=== PATIENT | male | born 1970 | race Caucasian/White ===

== ENCOUNTER → 2020-04-19 | Outpatient (CLI) | payer BC | LOC: LABNPT 05:32 | PROVIDERS: ATTEND Nurse Practitioner | DX: Z20.828 Contact with and (suspected) exposure to other viral communicable diseases (principal); Z53.8 Procedure and treatment not carried out for other reasons ==

== ENCOUNTER 2020-11-16 11:13 | Outpatient (CLI) | payer BC | END 2020-11-16 12:00 | disposition home or self-care (01) | LOC: SLEEP 11:13 | PROVIDERS: ATTEND Nurse Practitioner Family | DX: G47.33 Obstructive sleep apnea (adult) (pediatric) (principal); G47.36 Sleep related hypoventilation in conditions classified elsewhere; G47.50 Parasomnia, unspecified; G47.10 Hypersomnia, unspecified | CPT/HCPCS: G0399 ==

== ENCOUNTER → 2020-12-15 | Outpatient (CLI) | payer BC ==
--- NOTE | 2020-12-15 17:41 | Diagnostic Imaging Report ---
PROCEDURE: CT abdomen and pelvis without contrast. TECHNIQUE: Multiple contiguous axial images were obtained through the abdomen and pelvis without the use of intravenous contrast. Auto Exposure Controls were utilized during the CT exam to meet ALARA standards for radiation dose reduction. INDICATION: Microhematuria. No prior studies are available for comparison. The lung bases are clear. There is a nodular contour to the liver suggestive of cirrhosis. No discrete liver mass is identified. Spleen is mildly enlarged at 14.2 cm. Gallbladder is unremarkable. Pancreas is unremarkable. No adrenal mass is detected. Right kidney does contain a 5 mm nonobstructing calculus. Left kidney is unremarkable. There is no hydronephrosis. No bladder calculi are seen. Aorta is nonaneurysmal. There are some varices in the left periaortic region, perhaps representing splenorenal shunt. No ascites is present. Bowel loops are normal in caliber. Prostate is normal in size. IMPRESSION: 1. Nonobstructing right-sided nephrolithiasis. No ureteral calculi or hydronephrosis is detected. 2. Nodular contour to the liver as well as mild splenomegaly and probable abdominal varices. Features are consistent with cirrhosis and potentially portal hypertension. No ascites is present. Dictated by: Dictated on workstation # [id number]
== END ==
LOC: RAD FS 10:57
PROVIDERS: ATTEND Urology
DX: N20.0 Calculus of kidney (principal); K76.89 Other specified diseases of liver; R16.1 Splenomegaly, not elsewhere classified
CPT/HCPCS: 74176

== ENCOUNTER → 2020-12-30 | Outpatient (CLI) | payer BC ==
[~2020-12-30] MED LIST: CATHETER FLUSH 10 ML SYR IV PRN; HOLD METFORMIN - RECEIVED CONTRAST 20 ML VIAL IV SCH; IOHEXOL 350 MG/ML 100 ML (OMNIPAQUE 350) VIAL IV ONE; NS 100 ML (IVPB) BAG IV ONE
--- NOTE | 2020-12-30 09:07 | Diagnostic Imaging Report ---
EXAMINATION: CT chest with intravenous contrast. TECHNIQUE: Multiple contiguous axial images were obtained through the chest after the uneventful administration of intravenous contrast. All CT scans use one or more of the following dose optimizing techniques: automated exposure control, MA and/or KvP adjustment based on patient size and exam type or iterative reconstruction. HISTORY: ABN FINDINGS ON IMAGING OF LUNG COMPARISON: None available. FINDINGS: Thyroid: The thyroid is normal. Mediastinum: Heart size is normal without significant pericardial effusion. Calcifications of the aorta and coronary vessels. Thoracic aorta is normal in caliber. No suspicious lymphadenopathy. Lungs and airways: The lungs are clear without consolidation, pleural effusion, or pneumothorax. No suspicious pulmonary lesion. The airways are normal. Upper abdomen: Nodular morphology of the liver. The spleen is enlarged. No obstructing right renal calculus. Musculoskeletal: Degenerative changes of the spine without suspicious osseous lesion or compression fracture. IMPRESSION: 1. No acute abnormality in the chest. Dictated by: Dictated on workstation # [id number]
== END ==
LOC: RAD FS 08:05
PROVIDERS: ATTEND Nurse Practitioner Family
DX: R91.8 Other nonspecific abnormal finding of lung field (principal)
CPT/HCPCS: 71260

== ENCOUNTER 2021-03-15 17:52 | Emergency (ER) | payer SELFPAY ==
[~2021-03-15] VITALS: Ht 190 cm; Wt 183.0 kg
--- NOTE | 2021-03-15 18:16 | ED General ---
General Chief Complaint: Skin/Wound Problems Stated Complaint: RT LEG ULCER INFECTION Source of Information: Patient, Spouse History of Present Illness Date Seen by Provider: Mar 15, 2021 Time Seen by Provider: 17:55 Initial Comments 50 yo male presenting with his spouse due to increasing redness, pain and drainage from 2 wounds on his right calf and lower leg. He had been going through the wound care clinic at [facility] but recently lost his insurance. When that happened a few weeks ago he was unable to pay for any further visits because they were requesting $10,000 for each visit. He has not gone to the clinic to see be seen either. He has had no fever or chills. He has not been on an antibiotic for a few weeks now but the entire time he was seen wound care when he was off and on antibiotics every few weeks. He has been dealing with the swelling and leg ulcers for over a year. He has had worsening symptoms in the last 3 days and rather than go to the clinic he came here to the emergency department as he felt like he needed antibiotics. He is waiting on his disability application to be approved so that he can get insurance reinstated to be able to go back to a wound care center. Timing/Duration: 3-4 Days Severity: Moderate Modifying Factors: worse with Movement Associated Systoms: No Chest Pain, No Cough, No Diaphoresis, No Fever/Chills, No Headaches, No Loss of Appetite, No Malaise, No Nausea/Vomiting, No Rash, No Seizure, No Shortness of Air, No Syncope, No Weakness Allergies and Home Medications Allergies Coded Allergies: No Known Drug Allergies (Unverified , 03/15/21) Patient Home Medication List Home Medication List Reviewed: Yes Doxycycline Hyclate (Doxycycline Hyclate) 100 Mg Tablet, 100 MG PO BID Prescribed by: ANDREIA FAGAN on 03/15/211926 Review of Systems Review of Systems Constitutional: No chills, No fever EENTM: no symptoms reported Respiratory: no symptoms reported Cardiovascular: no symptoms reported Gastrointestinal: no symptoms reported Genitourinary: no symptoms reported Musculoskeletal: see HPI Skin: see HPI Psychiatric/Neurological: No Symptoms Reported Past Ovjnybs-Lfidgn-Coogfo Hx Patient Social History Tobacco Use?: Yes Tobacco type used: Cigarettes Smoking Status: Current Everyday Smoker Use of E-Cig and/or Vaping dev: No Substance use?: No Alcohol Use?: No Pt feels they are or have been: No Immunizations Up To Date First/Initial COVID19 Vaccinat: JULY 2020 Second COVID19 Vaccination Bowen: AUGUST 2020 COVID19 Vaccine Opening Machine Cleaner: BOSami Physical Exam Vital Signs Vital Signs - First Documented 03/15/21 18:08 Temp 36.8 Pulse 105 Resp 18 B/P (MAP) 154/90 (111) Pulse Ox 99 O2 Delivery Room Air Capillary Refill : Height, Weight, BMI Height: '" Weight: lbs. oz. kg; BMI Method: General Appearance: No Apparent Distress, Obese (morbid obesity) Respiratory: Chest Non Tender, Lungs Clear, Normal Breath Sounds Cardiovascular: Regular Rate, Rhythm Gastrointestinal: Normal Bowel Sounds, No Pulsatile Mass, Non Tender, Soft Extremity: Calf Tenderness (around wound on calf and around wound over tibia), Pedal Edema, Slow Capillary Refill, Swelling Neurologic/Psychiatric: Alert, Oriented x3 Skin: Warm/Dry, Erythema (mild redness to RLE with slight increase in warmth. ), Other (some purulent appearing drainage on packing material in wounds. no active drainage from either wound. no streaking up the leg. no fluctuance) Focused Exam Lactate Level 03/15/21 18:20: Lactic Acid Level 1.02 Lactic Acid Level Laboratory Tests Test 03/15/21 18:20 Lactic Acid Level 1.02 MMOL/L (0.50-2.00) Progress/Results/Core Measures Suspected Sepsis SIRS Temperature: Pulse: Respiratory Rate: Laboratory Tests 03/15/21 18:20: White Blood Count 7.0 Blood Pressure / Mean: 03/15/21 18:20: Lactic Acid Level 1.02 Laboratory Tests 03/15/21 18:20: Creatinine 0.67, Platelet Count 137, Total Bilirubin 1.0 Results/Orders Lab Results Laboratory Tests Test 03/15/21 18:20 Range/Units White Blood Count 7.0 4.3-11.0 10^3/uL Red Blood Count 2.89 L 4.30-5.52 10^6/uL Hemoglobin 10.6 L 13.3-17.7 g/dL Hematocrit 31 L 40-54 % Mean Corpuscular Volume 108 H 80-99 fL Mean Corpuscular Hemoglobin 37 H 25-34 pg Mean Corpuscular Hemoglobin Concent 34 32-36 g/dL Red Cell Distribution Width 13.8 10.0-14.5 % Platelet Count 137 130-400 10^3/uL Mean Platelet Volume 10.0 9.0-12.2 fL Immature Granulocyte % (Auto) 0 % Neutrophils (%) (Auto) 52 42-75 % Lymphocytes (%) (Auto) 32 12-44 % Monocytes (%) (Auto) 10 0-12 % Eosinophils (%) (Auto) 5 0-10 % Basophils (%) (Auto) 1 0-10 % Neutrophils # (Auto) 3.7 1.8-7.8 X 10^3 Lymphocytes # (Auto) 2.2 1.0-4.0 X 10^3 Monocytes # (Auto) 0.7 0.0-1.0 X 10^3 Eosinophils # (Auto) 0.3 0.0-0.3 10^3/uL Basophils # (Auto) 0.1 0.0-0.1 10^3/uL Immature Granulocyte # (Auto) 0.0 0.0-0.1 10^3/uL Neutrophils % (Manual) 54 % Lymphocytes % (Manual) 14 % Monocytes % (Manual) 9 % Eosinophils % (Manual) 4 % Basophils % (Manual) 1 % Atypical Lymphocytes 18 % Macrocytosis 2+ Sodium Level 138 135-145 MMOL/L Potassium Level 4.0 3.6-5.0 MMOL/L Chloride Level 103 98-107 MMOL/L Carbon Dioxide Level 27 21-32 MMOL/L Anion Gap 8 5-14 MMOL/L Blood Urea Nitrogen 12 7-18 MG/DL Creatinine 0.67 0.60-1.30 MG/DL Estimat Glomerular Filtration Rate 127 BUN/Creatinine Ratio 18 Glucose Level 90 70-105 MG/DL Lactic Acid Level 1.02 0.50-2.00 MMOL/L Calcium Level 8.6 8.5-10.1 MG/DL Corrected Calcium 9.2 8.5-10.1 MG/DL Total Bilirubin 1.0 0.1-1.0 MG/DL Aspartate Amino Transf (AST/SGOT) 56 H 5-34 U/L Alanine Aminotransferase (ALT/SGPT) 29 0-55 U/L Alkaline Phosphatase 170 H 40-136 U/L C-Reactive Protein 4.75 H <0.50 MG/DL Total Protein 8.0 6.4-8.2 GM/DL Albumin 3.2 3.2-4.5 GM/DL My Orders Orders - ANDREIA FAGAN MD Cbc With Automated Diff (03/15/21 18:09) Comprehensive Metabolic Panel (03/15/21 18:09) Blood Culture (03/15/21 18:09) Ed Iv/Invasive Line Start (03/15/21 18:09) Crp Fs (03/15/21 18:09) Lactic Acid Analyzer (03/15/21 18:09) Manual Differential (03/15/21 18:20) Ceftriaxone (Rocephin) (03/15/21 19:08) Ceftriaxone (Rocephin) (03/15/21 19:21) Water (Sterile) For Injection (Sterile W (03/15/21 19:21) Vital Signs/I&O 03/15/21 03/15/21 18:08 19:28 Temp 36.8 36.8 Pulse 105 105 Resp 18 18 B/P (MAP) 154/90 (111) 154/90 Pulse Ox 99 99 O2 Delivery Room Air Room Air Capillary Refill : Progress Note #1: Progress Note check basic labs with cultures and lactic acid. Will likely give antibiotic but will try to review med history to see if he has been on meds recently. Progress Note #2: Progress Note Labs do not show elevated WBC or Lactic acid. He has mild elevation of LFTs. Will give Rocephin 1 gm IV and follow that up with Doxycycline script since he has not had that since October and just finished a course of Amoxicillin 2 weeks ago. Counseled on follow up and return precautions and given information for [facility] clinic as they may be able to see him and help without the cost associated with [facility]. Departure Impression Primary Impression: Chronic ulcer of calf Additional Impressions: Cellulitis of right leg Chronic ulcer of right leg Qualified Codes: L97.912 - Non-pressure chronic ulcer of unspecified part of right lower leg with fat layer exposed Disposition: 01 HOME, SELF-CARE Condition: Stable Departure-Patient Inst. Decision time for Depature: 19:23 Referrals: SEBAS YOUNGBLOOD (PCP) Primary Care Physician [facility] Patient Instructions: Cellulitis (Skin Infection), Adult ED Add. Discharge Instructions: Take full course of antibiotics. Continue to use dressings you have on the wounds to help with healing. Consider working with [facility] clinic to help with treatment and assistance on wound care. They have federal funding to help with assistance for people without insurance or that are under-insured. Call [phone] to request an appointment. All discharge instructions reviewed with patient and/or family. Voiced understanding. Scripts Doxycycline Hyclate (Doxycycline Hyclate) 100 Mg Tablet 100 MG PO BID for cellulitis for 10 Days, #20 TAB 0 Refills Prov: ANDREIA FAGAN MD 03/15/21 ANDREIA FAGAN MD Mar 15, 2021 18:16
[2021-03-15 18:48] LABS: BASOPHILS # (AUTO) 0.1 10^3/uL (0.0-0.1); BASOPHILS % (AUTO) 1 % (0-10); EOSINOPHILS # (AUTO) 0.3 10^3/uL (0.0-0.3); EOSINOPHILS % (AUTO) 5 % (0-10); HEMATOCRIT 31 % (40-54); HEMOGLOBIN 10.6 g/dL (13.3-17.7); LYMPHOCYTES # (AUTO) 2.2 X 10^3 (1.0-4.0); LYMPHOCYTES % (AUTO) 32 % (12-44); MEAN CORPUSCULAR HEMOGLOBIN 37 pg (25-34); MEAN CORPUSCULAR HGB CONC 34 g/dL (32-36); MEAN CORPUSCULAR VOLUME 108 fL (80-99); MONOCYTES # (AUTO) 0.7 X 10^3 (0.0-1.0); MONOCYTES % (AUTO) 10 % (0-12); NEUTROPHILS # (AUTO) 3.7 X 10^3 (1.8-7.8); NEUTROPHILS % (AUTO) 52 % (42-75); PLATELET COUNT 137 10^3/uL (130-400)
[2021-03-15 18:49] LABS: ATYPICAL LYMPHOCYTES 18 %; BASOPHILS % (MANUAL) 1 %; EOSINOPHILS % (MANUAL) 4 %; LYMPHOCYTES % (MANUAL) 14 %; MONOCYTES % (MANUAL) 9 %; NEUTROPHILS % (MANUAL) 54 %
[2021-03-15 18:51] LABS: ALBUMIN 3.2 GM/DL (3.2-4.5); CALCIUM 8.6 MG/DL (8.5-10.1); CREATININE SERUM 0.67 MG/DL (0.60-1.30)
[2021-03-15] MEDS ORDERED: cefTRIAXone 1,000 MG in WATER (STERILE) FOR INJECTION 10 ML IV STA (19:08)
[2021-03-15] MEDS ORDERED: cefTRIAXone 1,000 MG VIAL ONE (19:21)
[2021-03-15] MEDS ORDERED: WATER (STERILE) FOR INJECTION 10 ML ONE (19:21)
[2021-03-15] MEDS ORDERED: DOXY100T2 PO (19:27)
[2021-03-15 19:28] VITALS: BP 154/90
== END 2021-03-15 19:32 | disposition home or self-care (01) ==
LOC: EDUNIT# 17:52 → ER FS 17:54
DX: L97.219 Non-pressure chronic ulcer of right calf with unspecified severity (principal); L97.919 Non-pressure chronic ulcer of unspecified part of right lower leg with unspecified severity; L03.115 Cellulitis of right lower limb; E66.01 Morbid (severe) obesity due to excess calories; F17.210 Nicotine dependence, cigarettes, uncomplicated
CPT/HCPCS: 36415; 80053; 83605; 85007; 85027; 86141; 87040

== ENCOUNTER 2021-04-08 16:01 | Emergency (ER) | payer SELFPAY ==
[~2021-04-08 16:01] MED LIST changes: -CATHETER FLUSH 10 ML SYR IV PRN; +DOXY100T2 PO; -HOLD METFORMIN - RECEIVED CONTRAST 20 ML VIAL IV SCH; -IOHEXOL 350 MG/ML 100 ML (OMNIPAQUE 350) VIAL IV ONE; -NS 100 ML (IVPB) BAG IV ONE
--- NOTE | 2021-04-08 16:16 | ED Integumentary General ---
General Stated Complaint: LT LEG WOUND CHECK History of Present Illness Date Seen by Provider: Apr 08, 2021 Time Seen by Provider: 16:16 Initial Comments 50-year-old male presents with left inner thigh cellulitis. Patient reports that he gets recurrent cellulitis. That this started about 3 days ago and has been spreading and getting worse. Patient presents because he did not have a primary care provider. Patient was seen here about a month ago with similar symptoms but on the right leg. No reports of fevers chills nausea vomiting Allergies and Home Medications Allergies Coded Allergies: No Known Drug Allergies (Unverified , 03/15/21) Patient Home Medication List Home Medication List Reviewed: Yes Doxycycline Hyclate (Doxycycline Hyclate) 100 Mg Tablet, 100 MG PO BID Prescribed by: ANDREIA FAGAN on 03/15/211926 Doxycycline Hyclate (Doxycycline Hyclate) 100 Mg Tablet, 100 MG PO BID Prescribed by: ROBBY ABAD on 04/08/21 163 Review of Systems Review of Systems Constitutional: No chills, No fever Respiratory: No short of breath, No wheezing Cardiovascular: No chest pain, No palpitations Gastrointestinal: No abdominal pain, No nausea, No vomiting Musculoskeletal: see HPI Skin: see HPI Psychiatric/Neurological: No Symptoms Reported Endocrine: No Symptoms Reported Hematologic/Lymphatic: No Symptoms Reported Past Wyznpdi-Fsqytw-Nvuofv Hx Immunizations Up To Date First/Initial COVID19 Vaccinat: JULY 2020 Second COVID19 Vaccination Bowen: AUGUST 2020 Physical Exam Vital Signs Vital Signs - First Documented 04/08/21 16:18 Temp 36.7 Pulse 105 Resp 18 B/P (MAP) 135/56 (82) Pulse Ox 96 O2 Delivery Room Air Capillary Refill : General Appearance: WD/WN, no apparent distress, obese Neck: full range of motion, supple Cardiovascular: normal peripheral pulses, regular rate, rhythm Respiratory: lungs clear, normal breath sounds, no respiratory distress Gastrointestinal: non tender, soft Extremities: normal range of motion Neurologic/Psychiatric: alert, normal mood/affect, oriented x 3 Skin: other (Mild cellulitis of the left inner thigh with some mild induration but no abscess) Skin Problem Location: lower extremities Skin Problem Character: erythema, warm Progress/Results/Core Measures Results/Orders Vital Signs/I&O 04/08/21 04/08/21 16:18 16:38 Temp 36.7 36.7 Pulse 105 105 Resp 18 18 B/P (MAP) 135/56 (82) 135/56 Pulse Ox 96 96 O2 Delivery Room Air Room Air Departure Impression Primary Impression: Cellulitis of left thigh Disposition: HOME, SELF-CARE Condition: Stable Departure-Patient Inst. Referrals: SEBAS YOUNGBLOOD (PCP/Family) Primary Care Physician Patient Instructions: Cellulitis (Skin Infection), Adult ED Add. Discharge Instructions: Please follow-up with critical access hospital to establish care and further outpatient manage Scripts Doxycycline Hyclate (Doxycycline Hyclate) 100 Mg Tablet 100 MG PO BID, #20 TAB 0 Refills Prov: ROBBY ABAD DO 04/08/21 ROBBY ABAD DO Apr 08, 2021 16:16
[2021-04-08] MEDS ORDERED: DOXY100T2 PO ×2 (16:23→16:37)
[2021-04-08 16:38] VITALS: BP 135/56
== END 2021-04-08 16:37 | disposition home or self-care (01) ==
LOC: EDUNIT# 16:01 → ER FS 16:03
DX: L03.116 Cellulitis of left lower limb (principal)
CPT/HCPCS: 99281

== ENCOUNTER 2022-02-20 22:18 | Emergency (ER) | payer MEDICAID, OTHER ==
[~2022-02-20] VITALS: Ht 190.5 cm; Wt 184.1 kg
[2022-02-20] MEDS ORDERED: DOXYCYCLINE 100 MG (VIBRAMYCIN) TABLET PO STA (22:44)
[2022-02-20] MEDS ORDERED: CEPHALEXIN 250 MG (KEFLEX) CAP PO STA (22:44)
[2022-02-20] MEDS ORDERED: DOXY100T2 PO (22:50)
[2022-02-20] MEDS ORDERED: CEPH500T PO (22:50)
--- NOTE | 2022-02-20 22:50 | ED Lower Extremity ---
General Chief Complaint: Lower Extremity Stated Complaint: POST SURGERY L LEG PAIN/SWELLING Source: patient Exam Limitations: no limitations History of Present Illness Date Seen by Provider: Feb 20, 2022 Time Seen by Provider: 22:23 Initial Comments 51-year-old male with past medical history of hypertension, hyperlipidemia, and chronic right-sided leg ulcerations coming in due to redness in the right lower extremity. He was not under general anesthesia, but was under an anxiolytic on 14 February where they went in and cleaned out the ulcerations on the right lower extremity. Redness started showing up yesterday that was spreading up his leg. No fevers that he knows of, does have some discomfort with it. Denies any new chest pain, shortness of breath, significant leg swelling with it. He is otherwise denying any other acute complaints. Has an appointment in 1 day with his regular doctor in the wound doctor. Allergies and Home Medications Allergies Coded Allergies: No Known Drug Allergies (Unverified , 03/15/21) Patient Home Medication List Home Medication List Reviewed: Yes Doxycycline Hyclate (Doxycycline Hyclate) 100 Mg Tablet, 100 MG PO BID Prescribed by: ANDREIA FAGAN on 03/15/211926 Doxycycline Hyclate (Doxycycline Hyclate) 100 Mg Tablet, 100 MG PO BID Prescribed by: ROBBY ABAD on 04/08/21 1637 Review of Systems Constitutional: No fever EENTM: No blurred vision Respiratory: No cough Cardiovascular: no symptoms reported Gastrointestinal: no symptoms reported Genitourinary: no symptoms reported Musculoskeletal: no symptoms reported Skin: see HPI Psychiatric/Neurological: No Symptoms Reported All Other Systems Reviewed Negative Unless Noted: Yes Past Yyravqy-Esuadr-Btkcop Hx Patient Social History Substance use?: No Immunizations Up To Date First/Initial COVID19 Vaccinat: JULY 2020 Second COVID19 Vaccination Bowen: AUGUST 2020 Past Medical History Surgery/Hospitalization HX: HX-MRSA wound infections Surgeries: Yes (wound debridement) Physical Exam Vital Signs Capillary Refill : Height, Weight, BMI Height: '" Weight: lbs. oz. kg; 50.00 BMI Method: General Appearance: WD/WN, no apparent distress HEENT: PERRL/EOMI, normal ENT inspection, pharynx normal Neck: non-tender, full range of motion, supple, normal inspection Cardiovascular: regular rate, rhythm, no edema, no murmur Respiratory: chest non-tender, lungs clear, normal breath sounds, no respiratory distress, no accessory muscle use Gastrointestinal: normal bowel sounds, non tender, soft; No distended, No guarding, No rebound Back: normal inspection Legs: right leg other (Redness starting at the wound spreading up his leg up the medial aspect of his thigh, is not circumferential, normal distal pulses, normal distal sensation, the ulcerations are to the medial aspect of his right mid calf and just above the ankle as well medially with no drainage coming out of that) Neurologic/Tendon: normal sensation, normal motor functions Neurologic/Psychiatric: no motor/sensory deficits, alert, normal mood/affect Skin: normal color, warm/dry Lymphatic: no adenopathy Progress/Results/Core Measures Results/Orders My Orders Orders - HILARIO MENSAH MD Doxycycline Hyclate Tablet (Vibramycin T (02/20/22 22:44) Cephalexin Capsule (Keflex Capsule) (02/20/22 22:44) Progress Progress Note : Progress Note 51-year-old male with above history coming in due to redness along the right leg. ABCs were intact and vitals were stable on presentation. Physical exam consistent with cellulitic changes to the right lower extremity coming from the wound. He will be given doxycycline as well as Keflex. He has follow-up with his physician in 1 day and they can do a wound check. Otherwise I believe he stable for discharge with outpatient follow-up. Departure Impression Primary Impression: Cellulitis of right lower extremity Disposition: 01 HOME, SELF-CARE Condition: Stable Departure-Patient Inst. Decision time for Depature: 23:00 Referrals: SEBAS YOUNGBLOOD (PCP/Family) Primary Care Physician Patient Instructions: Cellulitis (Skin Infection), Adult ED Add. Discharge Instructions: Your skin unfortunately has gotten infected. You will be on 2 different antibiotics for the next 10 days. Follow-up with your regular doctor for wound check. After being on the antibiotics for 48 hours roughly, it should no longer be spreading and hopefully getting better. If this is not the case call your doctor back or come back to the ER Scripts Cephalexin (Cephalexin) 500 Mg Tablet 500 MG PO QID for 10 Days, #40 TAB Prov: HILARIO MENSAH MD 02/20/22 Doxycycline Hyclate (Doxycycline Hyclate) 100 Mg Tablet 100 MG PO BID for 10 Days, #20 TAB 0 Refills Prov: HILARIO MENSAH MD 02/20/22 Work/School Note: Work Release Form Date Seen in the Emergency Department: Feb 20, 2022 Return to Work: Feb 22, 2022 Restrictions: No Restrictions HILARIO MENSAH MD Feb 20, 2022 22:50
[2022-02-20 22:59] VITALS: BP 122/91
== END 2022-02-20 22:59 | disposition home or self-care (01) ==
LOC: EDUNIT# 22:18 → ER FS 22:20
DX: L03.115 Cellulitis of right lower limb (principal)
CPT/HCPCS: 99283

== ENCOUNTER 2022-04-15 19:30 | Emergency (ER) | payer MEDICAID ==
[~2022-04-15] VITALS: Ht 190 cm; Wt 150.0 kg
[~2022-04-15 19:30] MED LIST changes: +CEPH500T PO
[2022-04-15 19:43] VITALS: BP 136/71
--- NOTE | 2022-04-15 19:47 | ED Upper Extremity ---
General Chief Complaint: Upper Extremity Stated Complaint: RIGHT HAND INJURY History of Present Illness Date Seen by Provider: Apr 15, 2022 Time Seen by Provider: 19:46 Initial Comments 51-year-old male is here with complaints of second finger, right thumb and thenar area of the hand pain which began yesterday. Patient is concerned he might have a fracture. Denies fall, injury, sensory loss. Patient is unsure how he injured his hand but has been having pain. Allergies and Home Medications Allergies Coded Allergies: No Known Drug Allergies (Unverified , 03/15/21) Patient Home Medication List Home Medication List Reviewed: Yes Cephalexin (Cephalexin) 500 Mg Tablet, 500 MG PO QID Prescribed by: HILARIO MENSAH on 02/20/222249 Doxycycline Hyclate (Doxycycline Hyclate) 100 Mg Tablet, 100 MG PO BID Prescribed by: ANDREIA FAGAN on 03/15/211926 Doxycycline Hyclate (Doxycycline Hyclate) 100 Mg Tablet, 100 MG PO BID Prescribed by: ROBBY ABAD on 04/08/21 163 Doxycycline Hyclate (Doxycycline Hyclate) 100 Mg Tablet, 100 MG PO BID Prescribed by: HILARIO MENSAH on 02/20/222249 Review of Systems Constitutional: no symptoms reported EENTM: no symptoms reported Respiratory: no symptoms reported Cardiovascular: no symptoms reported Gastrointestinal: no symptoms reported Genitourinary: no symptoms reported Musculoskeletal: joint pain Skin: no symptoms reported Psychiatric/Neurological: No Symptoms Reported Past Pgsnmjc-Zktjen-Cyxpvf Hx Patient Social History Tobacco Use?: Yes Tobacco type used: Cigarettes Smoking Status: Current Everyday Smoker Substance use?: No Alcohol Use?: Yes Immunizations Up To Date First/Initial COVID19 Vaccinat: JULY 2020 Second COVID19 Vaccination Bowen: AUGUST 2020 Third COVID19 Vaccination Date: Date? Past Medical History Surgery/Hospitalization HX: HX-MRSA wound infections, Chronic R leg ulcerations with debridement 02/14/22, Hx cellulitis, Spinal fusion back surgery x 3, cataracts, HTN, PAULINE (returned his CPAP), Morbid obesity, Chronic pain Surgeries: Yes (wound debridement) Physical Exam Vital Signs Vital Signs - First Documented 04/15/22 19:43 Temp 37.2 Pulse 63 Resp 22 B/P (MAP) 136/71 (92) Pulse Ox 94 O2 Delivery Room Air Capillary Refill : Height, Weight, BMI Height: '" Weight: lbs. oz. kg; 50.00 BMI Method: General Appearance: WD/WN, no apparent distress HEENT: PERRL/EOMI Neck: full range of motion Wrist: Yes normal inspection, Yes non-tender, Yes no evidence of injury, Yes normal ROM Hand: normal inspection, no evidence of injury, normal ROM, Right, soft tissue tenderness (tenderness in the thenar area of the palm and thumb, as well as 2nd finger. ), stiffness Neurologic/Psychiatric: no motor/sensory deficits, alert, oriented x 3 Skin: normal color Progress/Results/Core Measures Results/Orders My Orders Orders - JANA CARIAS MD Hand 3 View Right (04/15/22 20:12) Vital Signs/I&O 04/15/22 19:43 Temp 37.2 Pulse 63 Resp 22 B/P (MAP) 136/71 (92) Pulse Ox 94 O2 Delivery Room Air Progress Progress Note : Progress Note 1. ARTHRITIS OF RIGHT HAND: - XR RIGHT HAND: mo fracture or dislocation, shows arthritis - Ibuprofen or Tylenol prn pain - Follow-up with PCP within 7 days Diagnostic Imaging Diagonstic Imaging: Xray Plain Films/CT/US/NM/MRI: hand Comments [facility], [place] NAME: [facility] REC#: [id number] PT STATUS: REG ER : 1970 PHYSICIAN: JANA CARIAS MD ADMIT DATE: 04/15/22/ER FS Draft Date of Exam:04/15/22 HAND 3 VIEW RIGHT EXAMINATION: Right hand 3 views. HISTORY: Hand injury. COMPARISON: None available. FINDINGS: There is moderate first carpometacarpal joint osteoarthritis. There is an old healed fracture of the base of the fifth metatarsal. No acute fracture. No dislocation. IMPRESSION: No acute fracture. Dictated on workstation # [id number] Dict: 04/15/222030 Trans: 04/15/222034 [facility] [phone] Interpreted by: ROLF BURK MD Electronically signed by: Departure Impression Primary Impression: Arthritis of hand, right Disposition: 01 HOME, SELF-CARE Condition: Stable Departure-Patient Inst. Referrals: SEBAS YOUNGBLOOD (PCP/Family) Primary Care Physician Patient Instructions: Osteoarthritis (DC) Add. Discharge Instructions: Follow-up with PCP within 7 days All discharge instructions reviewed with patient and/or family. Voiced understanding. JANA CARIAS MD Apr 15, 2022 19:46
--- NOTE | 2022-04-15 20:35 | Diagnostic Imaging Report ---
EXAMINATION: Right hand 3 views. HISTORY: Hand injury. COMPARISON: None available. FINDINGS: There is moderate first carpometacarpal joint osteoarthritis. There is an old healed fracture of the base of the fifth metatarsal. No acute fracture. No dislocation. IMPRESSION: No acute fracture. Dictated by: Dictated on workstation # [id number]
== END 2022-04-15 20:57 | disposition home or self-care (01) ==
LOC: EDUNIT# 19:30 → ER FS 19:33
DX: M19.041 Primary osteoarthritis, right hand (principal); G47.33 Obstructive sleep apnea (adult) (pediatric); E66.01 Morbid (severe) obesity due to excess calories; F17.210 Nicotine dependence, cigarettes, uncomplicated; Z68.43 Body mass index [BMI] 50.0-59.9, adult; Z99.89 Dependence on other enabling machines and devices
CPT/HCPCS: 73130

== ENCOUNTER 2022-09-05 13:07 | Emergency (ER) | payer MEDICAID ==
[~2022-09-05] VITALS: Ht 190.5 cm; Wt 156.5 kg
[2022-09-05 13:18] VITALS: BP 146/72
[2022-09-05] MEDS ORDERED: methylPREDNISolone 80 MG/ML (DEPO MEDROL) VIAL IM STA (13:26)
[2022-09-05] MEDS ORDERED: ORPHENADRINE 60 MG/2 ML (NORFLEX) AMP (ED ONLY) IM STA (13:26)
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
--- NOTE | 2022-09-05 14:27 | Diagnostic Imaging Report ---
PROCEDURE: CT lumbar spine without contrast. TECHNIQUE: Multiple contiguous axial images were obtained through the lumbar spine without the use of intravenous contrast. Sagittal and coronal reformations were then performed. Auto Exposure Controls were utilized during the CT exam to meet ALARA standards for radiation dose reduction. DATE: September 05, 2022. INDICATION: 52-year-old male, chronic low back pain. COMPARISON: CT abdomen and pelvis December 15, 2020. FINDINGS: There is a thoracolumbar levocurvature and a lumbosacral dextrocurvature. The anterior to posterior alignment of the lumbar spine is unremarkable. There are laminectomy changes of L4 and L5. There is moderate disc height loss at L1-L2. There is severe disc height loss at L2-L3, L3-L4, L4-L5, and L5-S1. There is intervertebral hardware at L4-L5 and L5-S1. There are mild bilateral facet degenerative changes at L2-L3. There are more advanced left greater than right facet degenerative changes at L3-L4. There are facet degenerative changes at L4-L5 and L5-S1. CT is limited for assessment of disc pathology as well as additional nonbony causes of pathology in the spinal canal. There does appear to be high-grade spinal stenosis at L3-L4 and at least high-grade left foraminal narrowing at this level relating to diffuse disc bulge, facet degenerative change, and ligamentum flavum hypertrophy. There also does appear to be a diffuse disc bulge and likely at least mild to moderate spinal stenosis at L2-L3. There is likely at least mild to moderate right foraminal narrowing at this level. There is no identified acute fracture of the lumbar spine. There is no identified focal concerning bone lesion. IMPRESSION: 1. Thoracolumbar levocurvature and lumbosacral dextrocurvature. 2. Multilevel disc and facet degenerative changes of the lumbar spine which are most notable at L3-L4 and L2-L3. 3. Laminectomy changes of L4 and L5 with intervertebral hardware at both levels. 4. No identified acute fracture of the lumbar spine or focal concerning bone lesion. Dictated by: Dictated on workstation # [id number]
[2022-09-05] MEDS ORDERED: TIZA-186 PO (14:41)
== END 2022-09-05 14:45 | disposition home or self-care (01) ==
LOC: EDUNIT# 13:07 → ER FS 13:09
DX: M54.50 Low back pain, unspecified (principal); G89.29 Other chronic pain; E66.01 Morbid (severe) obesity due to excess calories; G47.33 Obstructive sleep apnea (adult) (pediatric); Z99.89 Dependence on other enabling machines and devices; Z79.891 Long term (current) use of opiate analgesic; Z68.41 Body mass index [BMI] 40.0-44.9, adult
CPT/HCPCS: 72131